=== PATIENT | female | born 1985 | race Two or more races ===

== ENCOUNTER 2024-01-14 21:34 | Emergency (ER) | payer OTHER ==
[~2024-01-14] VITALS: Ht 154.9 cm; Wt 87.0 kg
[2024-01-14 21:51] VITALS: O2SAT 96
[2024-01-14] MEDS: ONDANSETRON HCL 4MG/2ML INJ IV ONE (22:34)
[2024-01-14] MEDS: SODIUM CHLORIDE 0.9% 1,000 ML IV ONE (22:34)
[2024-01-14 22:42] LABS: BASOPHILS % 0.9 % (0.0-2.0); EOSINOPHILS % 2.1 % (0.0-5.0); HEMATOCRIT. 36.8 % (36.0-48.0); HEMOGLOBIN. 11.5 g/dL (12.0-16.0); LYMPHOCYTES % 27.8 % (20.0-50.0); MEAN CORPUSCULAR HGB CONC 31.2 g/dL (31.0-37.0); MEAN CORPUSCULAR VOLUME 64.2 fL (81.0-99.0); MEAN PLATELET VOLUME 10.5 fl (7.4-10.4); MONOCYTES % 6.7 % (2.0-8.0); NEUTROPHILS % 62.5 % (40.0-76.0); PLATELET 239 x1000/uL (130-400); RED BLOOD CELL COUNT 5.73 mill/uL (4.2-5.4); WHITE BLOOD COUNT 9.3 x1000/uL (4.5-11.0)
[2024-01-14 22:43] LABS: ADD RBC MORPHOLOGY YES; DIFFERENTIAL COMMENT 1
[2024-01-14 22:47] LABS: CHLORIDE 106 mEq/L (98-107); POTASSIUM 3.9 mEq/L (3.5-5.1); SODIUM 135 mEq/L (136-145)
[2024-01-14 22:48] LABS: CALCIUM 9.5 mg/dL (8.7-10.4); CARBON DIOXIDE 20 mEq/L (21-32)
[2024-01-14] MEDS: ACETAMINOPHEN 1000MG/100ML 100 ML IV ONE (22:48)
[2024-01-14 22:53] LABS: CREATININE 0.8 mg/dL (0.6-1.0); GLUCOSE 112 mg/dL (70-105); UREA NITROGEN BLOOD 8 mg/dL (9-23)
[2024-01-14 22:55] LABS: ALANINE AMINOTRANSFERASE 19 IU/L (10-49); ALBUMIN 4.5 g/dL (3.2-4.8); ASPARTATE AMINOTRANSFERASE 26 IU/L (<34); BILIRUBIN TOTAL 0.5 mg/dL (0.1-1.0); PROTEIN TOTAL 8.1 g/dL (6.0-8.3)
[2024-01-14 22:56] LABS: BILIRUBIN DIRECT < 0.1 mg/dL (<=3.0)
[2024-01-14 23:00] LABS: HCG SCREEN NEGATIVE
[2024-01-14 23:28] LABS: PLATELET ESTIMATE NORMAL
[2024-01-14 23:29] LABS: ANISOCYTOSIS 1+; HYPOCHROMASIA 2+; MICROCYTOSIS 3+; OVALOCYTES 1+
[2024-01-15] MEDS: IOHEXOL-300 100 ML BOTTLE ONE (00:40)
[2024-01-15] MEDS ORDERED: AMOXICILLIN/POTASSIUM CLAVULANATE 875/125MG TAB PO ONE (01:00)
[2024-01-15] MEDS ORDERED: ONDA4TAB50 MT (01:22)
[2024-01-15] MEDS ORDERED: NAPR-420 MT (01:22)
[2024-01-15] MEDS: KETOROLAC 15MG/ML VIAL IV NR (01:30)
[2024-01-15 01:45] VITALS: BP 112/71; PULSE 69; RESP 16; TEMP 36.44736; O2SAT 100
== END 2024-01-15 01:55 | disposition home or self-care (01) ==
LOC: ER 21:34
DX: N83.202 Unspecified ovarian cyst, left side (principal); E03.9 Hypothyroidism, unspecified
CPT/HCPCS: 80076; 80048; 84703; 85025; 36415; 74177; 76830; 76856; 96365; 96375 ×2; 99285; J2405; J7030; Q9967; J1885; Z7610; J0131